=== PATIENT | female | born 1950 | race Caucasian/White ===

== ENCOUNTER 2023-03-30 09:08 | Day surgery (SDC) | payer MEDICARE ==
[~2023-03-30] VITALS: Ht 180.3 cm; Wt 65.6 kg
[2023-03-30] VITALS (7 sets, daily range): BP systolic 149–163; BP diastolic 54–104
[2023-03-30] MEDS ORDERED: normal saline 1000ml 1,000 ML IV PRN (09:40)
[2023-03-30] MEDS ORDERED: ceFAZolin inj. 2,000 MG in normal saline soln 50 ML IV ONE (09:40)
[2023-03-30] MEDS ORDERED: FOLI0.8C PO (10:49)
[2023-03-30] MEDS ORDERED: SEVE800T8 PO (10:49)
[2023-03-30] MEDS ORDERED: LOSA25TA41 PO (10:49)
[2023-03-30] MEDS ORDERED: ACET-3068 PO (10:49)
[2023-03-30] MEDS ORDERED: heparin 1,000unit/ml 10ml vial 10 ML ONE (11:45)
--- NOTE | 2023-03-30 12:26 | NUR ---
Pt arrived from [facility] exchange procedure with Ancef abx just finished. Noted rash on arm and large blister on upper arm. Dr. Orourke notified. New order received for IV Benadryl. Addendum: 03/30/23 at 1842 by Edil Vides RN Amended: Links added. Addendum: 03/30/23 at 1847 by Edil Vides RN rash on left arm with PIV
[2023-03-30] MEDS ORDERED: diphenhydrAMINE 50 mg/ml inj IV ONE (12:41)
--- NOTE | 2023-03-30 13:10 | NUR ---
Noted that rash on arm greatly reduced and pt states that she feels much better. Blister still present but not as red and improved in appearance. Dr. Orourke notified. Addendum: 03/30/23 at 1846 by Edil Vides RN Amended: Links added.
--- NOTE | 2023-03-30 13:30 | NUR ---
Pt rash on arm continues to improve and pt will be discharged at about 1400. aware of pt condition and gave 1400 discharge time if no further complications or negative changes in pt condition. Addendum: 03/30/23 at 1846 by Edil Vides RN Amended: Links added.
== END 2023-03-30 14:10 | disposition home or self-care (01) ==
LOC: SSTAY O 09:08
PROVIDERS: ATTEND Radiology Vascular & Interventional Radiology
DX: T82.41XA Breakdown (mechanical) of vascular dialysis catheter, initial encounter (principal); N18.6 End stage renal disease; Z88.1 Allergy status to other antibiotic agents; Z79.899 Other long term (current) drug therapy; Y83.8 Other surgical procedures as the cause of abnormal reaction of the patient, or of later complication, without mention of misadventure at the time of the procedure; Y92.89 Other specified places as the place of occurrence of the external cause
CPT/HCPCS: 36581; 77001; C1750; C1769; J1200; J1644; J7030; A4620; A9270